=== PATIENT | female | born 1940 | race Two or more races ===

== ENCOUNTER 2024-12-02 17:42 | Emergency (ER) | payer OTHER ==
[~2024-12-02] VITALS: Ht 157.5 cm; Wt 79.4 kg
[2024-12-02] MEDS ORDERED: CARVEDILOL ER40 MG PO (17:55)
[2024-12-02] MEDS ORDERED: LIPITOR40 M1 PO (17:55)
[2024-12-02] MEDS ORDERED: HUMULIN R100 UNIT/1 (17:56)
[2024-12-02] MEDS ORDERED: VALSARTAN80 MG PO (17:56)
[2024-12-02] MEDS ORDERED: ISOSORBIDE MONO60 MG PO (17:56)
[2024-12-02] MEDS ORDERED: BUMETANIDE2 MG PO (17:57)
== END 2024-12-02 21:27 | disposition home or self-care (01) ==
LOC: ER 18:23
DX: K22.0 Achalasia of cardia (principal)